=== PATIENT | male | born 1945 | race Caucasian/White ===

== ENCOUNTER 2017-11-22 09:38 | Emergency (ER) | payer MEDICARE ==
[2017-11-22 10:21] LABS: BASOPHILS % (AUTO) 0.4 % (0.0-5.0); HEMATOCRIT 40.9 % (42-54); LYMPHOCYTES % (AUTO) 9.5 % (21.0-51.0); MEAN CORPUSCULAR HEMOGLOBIN 32.4 pg (27.0-33.0); MEAN CORPUSCULAR HGB CONC 33.9 g/dL (32.0-36.0); MEAN CORPUSCULAR VOLUME 95.5 fL (79-99); MONOCYTES % (AUTO) 10.5 % (3.0-13.0); NEUTROPHILS % (AUTO) 79.6 % (40.0-77.0); NUCLEATED RED BLOOD CELLS 0.1 % (0.0-0.19); PLATELET COUNT (AUTO) 155 K/uL (130-400); RED BLOOD CELL COUNT(AUTO) 4.29 MIL/uL (4.50-6.20); RED CELL DISTRIBUTION WIDTH 14.2 % (11.0-15.5)
[2017-11-22 10:39] LABS: CREATININE 1.2 mg/dL (0.5-1.5); POTASSIUM 4.5 mmol/L (3.5-5.1)
[2017-11-22 10:44] LABS: ALBUMIN 4.1 g/dL (3.5-5.0); BILIRUBIN,TOTAL 0.5 mg/dL (0.2-1.0); TOTAL PROTEIN, SERUM 7.5 g/dL (6.0-8.3)
[2017-11-22 10:55] LABS: B-TYPE NATRIURETIC PEPTIDE 145 pg/mL (0-100)
[2017-11-22] MEDS ORDERED: ACETAMINOPHEN 325 MG TAB ONE (11:08)
[2017-11-22] MEDS ORDERED: BENZONATATE 100 MG CAPSULE PO ONE (11:17)
[2017-11-22 11:28] LABS: CREATINE KINASE MB 0.5 ng/mL (0.5-3.6)
== END 2017-11-22 14:54 | disposition home or self-care (01) ==
LOC: EDH 09:38
DX: J09.X2 Influenza due to identified novel influenza A virus with other respiratory manifestations (principal); I10 Essential (primary) hypertension; E78.5 Hyperlipidemia, unspecified; K21.9 Gastro-esophageal reflux disease without esophagitis
CPT/HCPCS: 36415; 71046; 80053; 82550; 82553; 83605; 83880; 84484; 85025; 87040; 87804; 93005